=== PATIENT | female | born 1990 | race Two or more races ===

== ENCOUNTER 2016-09-01 20:11 | Observation (INO) | payer MEDICAID ==
[~2016-09-01 20:11] MED LIST: CLIN1CAP4 PO
[2016-09-01 20:45] LABS: Urine RBC None Seen /hpf (0 - 4)
[2016-09-01 20:57] LABS: Urine Bilirubin Negative (Negative); Urine Blood Negative /uL (Negative); Urine Color Yellow (Yellow); Urine Glucose Normal (Normal); Urine Ketone Negative (Negative); Urine Nitrite Negative (Negative); Urine Squamous Epithelial Cell FEW /hpf (<5); Urine Urobilinogen Normal (Negative)
[2016-09-01 22:51] LABS: Albumin 2.6 g/dL (3.4-5.0); BUN/Creatinine Ratio 12.2; Bilirubin, Total 0.3 mg/dL (0.2-1.0); Calcium 8.4 mg/dL (8.5-10.1); Potassium 3.5 mmol/L (3.5-5.1); Total Protein 6.2 g/dL (6.4-8.2)
== END 2016-09-01 23:16 | disposition home or self-care (01) | DRG 566 ==
LOC: LDRP 20:11
PROVIDERS: ADMIT Specialist; ATTEND Specialist
DX: O26.892 Other specified pregnancy related conditions, second trimester (principal); L29.9 Pruritus, unspecified; Z3A.26 26 weeks gestation of pregnancy
CPT/HCPCS: 36415; 59025; 76818; 80053; 81001; 87086; G0378; G0434